=== PATIENT | female | born 1995 | race Caucasian/White ===

== ENCOUNTER 2018-06-28 05:35 | Inpatient (IN) | payer OTHER ==
[2018-06-28] MEDS ORDERED: NACL 0.9% 3 ML SYG IV (06:30)
[2018-06-28] MEDS ORDERED: ACETAMINOPHEN 325 MG TAB PO (06:30)
[2018-06-28] MEDS ORDERED: DOCUSATE SODIUM 100 MG CAP PO (06:30)
[2018-06-28] MEDS ORDERED: BISACODYL (EC) 5 MG TAB PO (06:30)
[2018-06-28] MEDS: SOD CHLORIDE 0.9% 1,000 ML IV ×2 (06:58→15:03)
[2018-06-28 07:27] LABS: ADD MAN DIFF? NO
[2018-06-28 07:29] LABS: ADD UMIC YES; UR ASCORBIC ACID NEGATIVE (NEGATIVE); UR BACTERIA FEW /HPF (NONE SEEN); UR BILIRUBIN (Dip) NEGATIVE (NEGATIVE); UR BLOOD (Dip) NEGATIVE (NEGATIVE); UR CLARITY CLEAR (CLEAR); UR COLOR STRAW (YELLOW); UR GLUCOSE (Dip) NEGATIVE (NEGATIVE); UR KETONES (Dip) NEGATIVE (NEGATIVE); UR LEUKOCYTE ESTERASE (Dip) TRACE Leu/ul (NEGATIVE); UR MUCUS FEW /HPF (NONE SEEN); UR NITRITE (Dip) POSITIVE (NEGATIVE); UR RBC 2 /HPF (0-5); UR SPECIFIC GRAVITY (Dip) 1.011 (1.003-1.030); UR TOTAL PROTEIN (Dip) NEGATIVE (NEGATIVE); UR UROBILINOGEN (Dip) NEGATIVE (NEGATIVE); UR WBC 20 /HPF (0-5)
[2018-06-28 07:31] LABS: WHITE BLOOD COUNT 7.2 10^3/ul (4.8-10.8)
[2018-06-28 07:31] LABS: BASOPHILS % 0.3 % (0.0-2.0); EOSINOPHILS % 0.6 % (0.0-7.0); HEMATOCRIT 37.3 % (37.0-47.0); HEMOGLOBIN 12.1 g/dl (12.0-16.0); LYMPHOCYTES # 1.1 10^3/ul (0.8-2.9); LYMPHOCYTES % 15.5 % (15.0-51.0); MEAN CORPUSCULAR HEMOGLOBIN 26.6 pg (29.0-33.0); MEAN CORPUSCULAR HGB CONC 32.4 g/dl (32.0-37.0); MEAN PLATELET VOLUME 10.9 fl (7.4-10.4); MONOCYTE # 0.6 10^3/ul (0.3-0.9); MONOCYTES % 7.8 % (0.0-11.0); NEUTROPHIL # 5.4 10^3/ul (1.6-7.5); NEUTROPHILS % 75.5 % (39.0-77.0); PLATELET COUNT 278 10^3/UL (140-415); RED BLOOD COUNT 4.55 10^6/ul (4.20-5.40); RED CELL DISTRIBUTION WIDTH 15.3 % (11.5-14.5)
[2018-06-28 07:57] LABS: ALANINE AMINOTRANSFERASE 26 IU/L (13-69); ALBUMIN 3.8 g/dl (3.3-4.9); ALBUMIN/GLOBULIN RATIO 1.26; ALKALINE PHOSPHATASE 83 IU/L (42-121); ANION GAP 9 (5-13); ASPARTATE AMINO TRANSFERASE 23 IU/L (15-46); BLOOD UREA NITROGEN 9 mg/dl (7-20); CALCIUM 8.4 mg/dl (8.4-10.2); CARBON DIOXIDE 21 mmol/L (21-31); CHLORIDE 112 mmol/L (97-110); CREATININE 0.69 mg/dl (0.44-1.00); Estimated GFR > 60 mL/min (>60); GLUCOSE 94 mg/dl (70-220); POTASSIUM 3.7 mmol/L (3.5-5.1); SODIUM 142 mmol/L (135-144); TOTAL PROTEIN 6.8 g/dl (6.1-8.1)
[2018-06-28 08:03] LABS: LACTIC ACID 1.6 mmol/L (0.5-2.0)
[2018-06-28] MEDS: ENOXAPARIN 40 MG/0.4 ML SYG SC (08:40)
[2018-06-28 10:11] LABS: HEMOGLOBIN A1C 5.2 % (0-5.9)
[2018-06-28 11:01] LABS: LACTIC ACID 1.7 mmol/L (0.5-2.0)
[2018-06-28] MEDS: CEFTRIAXONE 1 GM/50 ML (PMX) 50 ML IVPB (12:54)
[2018-06-28 15:21] LABS: LACTIC ACID 1.4 mmol/L (0.5-2.0)
[2018-06-29] MEDS: ONDANSETRON 4 MG INJ IV (01:10)
[2018-06-29] MEDS: HYDROCODONE/APAP (5/325) TAB PO (01:11)
[2018-06-29 05:59] LABS: ADD MAN DIFF? NO
[2018-06-29 06:27] LABS: WHITE BLOOD COUNT 4.9 10^3/ul (4.8-10.8)
[2018-06-29 06:27] LABS: BASOPHILS % 0.2 % (0.0-2.0); EOSINOPHILS # 0.1 10^3/ul (0.0-0.5); EOSINOPHILS % 2.2 % (0.0-7.0); HEMATOCRIT 39.3 % (37.0-47.0); HEMOGLOBIN 12.7 g/dl (12.0-16.0); LYMPHOCYTES # 1.7 10^3/ul (0.8-2.9); LYMPHOCYTES % 33.6 % (15.0-51.0); MEAN CORPUSCULAR HEMOGLOBIN 26.7 pg (29.0-33.0); MEAN CORPUSCULAR HGB CONC 32.3 g/dl (32.0-37.0); MEAN CORPUSCULAR VOLUME 82.7 fl (82.0-101.0); MEAN PLATELET VOLUME 10.9 fl (7.4-10.4); MONOCYTE # 0.6 10^3/ul (0.3-0.9); NEUTROPHIL # 2.5 10^3/ul (1.6-7.5); NEUTROPHILS % 50.8 % (39.0-77.0); PLATELET COUNT 297 10^3/UL (140-415); RED BLOOD COUNT 4.75 10^6/ul (4.20-5.40); RED CELL DISTRIBUTION WIDTH 15.2 % (11.5-14.5)
[2018-06-29 06:43] LABS: ALANINE AMINOTRANSFERASE 12 IU/L (13-69); ALBUMIN/GLOBULIN RATIO 1.14; ALKALINE PHOSPHATASE 85 IU/L (42-121); ANION GAP 8 (5-13); ASPARTATE AMINO TRANSFERASE 24 IU/L (15-46); BILIRUBIN,INDIRECT 0.2 mg/dl (0-1.1); BILIRUBIN,TOTAL 0.2 mg/dl (0.2-1.3); BLOOD UREA NITROGEN 11 mg/dl (7-20); CALCIUM 8.8 mg/dl (8.4-10.2); CARBON DIOXIDE 26 mmol/L (21-31); CHLORIDE 108 mmol/L (97-110); CREATININE 1.04 mg/dl (0.44-1.00); Estimated GFR > 60 mL/min (>60); GLUCOSE 104 mg/dl (70-220); POTASSIUM 3.9 mmol/L (3.5-5.1); SODIUM 142 mmol/L (135-144); TOTAL PROTEIN 7.5 g/dl (6.1-8.1)
[2018-06-29] MEDS: ENOXAPARIN 40 MG/0.4 ML SYG SC (09:03)
[2018-06-29] MEDS: MEROPENEM 1 GM/50ML(PMX) 50 ML IVPB (22:10)
[2018-06-30 06:28] LABS: ADD MAN DIFF? NO
[2018-06-30 06:33] LABS: BASOPHILS % 0.2 % (0.0-2.0); EOSINOPHILS # 0.1 10^3/ul (0.0-0.5); EOSINOPHILS % 1.6 % (0.0-7.0); HEMATOCRIT 43.4 % (37.0-47.0); LYMPHOCYTES # 1.6 10^3/ul (0.8-2.9); LYMPHOCYTES % 36.3 % (15.0-51.0); MEAN CORPUSCULAR HEMOGLOBIN 26.4 pg (29.0-33.0); MEAN CORPUSCULAR HGB CONC 32.3 g/dl (32.0-37.0); MEAN CORPUSCULAR VOLUME 81.7 fl (82.0-101.0); MEAN PLATELET VOLUME 10.8 fl (7.4-10.4); MONOCYTE # 0.5 10^3/ul (0.3-0.9); NEUTROPHIL # 2.2 10^3/ul (1.6-7.5); NEUTROPHILS % 49.9 % (39.0-77.0); PLATELET COUNT 318 10^3/UL (140-415); RED BLOOD COUNT 5.31 10^6/ul (4.20-5.40); RED CELL DISTRIBUTION WIDTH 15.2 % (11.5-14.5)
[2018-06-30 06:33] LABS: WHITE BLOOD COUNT 4.3 10^3/ul (4.8-10.8)
[2018-06-30 06:52] LABS: ANION GAP 10 (5-13); BLOOD UREA NITROGEN 14 mg/dl (7-20); CARBON DIOXIDE 25 mmol/L (21-31); CHLORIDE 107 mmol/L (97-110); CREATININE 0.85 mg/dl (0.44-1.00); Estimated GFR > 60 mL/min (>60); GLUCOSE 96 mg/dl (70-220); POTASSIUM 4.1 mmol/L (3.5-5.1); SODIUM 142 mmol/L (135-144)
[2018-06-30] MEDS: MEROPENEM 1 GM/50ML(PMX) 50 ML IVPB ×2 (07:04→14:07)
[2018-06-30 07:14] LABS: PHOSPHORUS 5.3 mg/dl (2.5-4.9)
[2018-06-30] MEDS: ENOXAPARIN 40 MG/0.4 ML SYG SC (08:56)
[2018-06-30] MEDS: VITAMIN A & D 5 GM OINT PACKET TOP (12:44)
[2018-06-30] MEDS: ERTAPENEM SODIUM 1 GM in SOD CHLORIDE 0.9% 100 ML IVPB (23:34)
[2018-07-01] MEDS: ENOXAPARIN 40 MG/0.4 ML SYG SC (09:55)
== END 2018-07-01 16:25 | disposition home health service (06) | DRG 690 ==
LOC: TEL 05:35 → 2NE 06-29 17:54
DX: N12 Tubulo-interstitial nephritis, not specified as acute or chronic (principal); E66.9 Obesity, unspecified; Z68.34 Body mass index [BMI] 34.0-34.9, adult; Q64.9 Congenital malformation of urinary system, unspecified; Z93.6 Other artificial openings of urinary tract status; B96.20 Unspecified Escherichia coli [E. coli] as the cause of diseases classified elsewhere; Z16.12 Extended spectrum beta lactamase (ESBL) resistance
CPT/HCPCS: 80048; 80053; 81001; 83036; 83605; 83735; 84100; 84443; 85025; 87086; 90686; 99217; G0378

== ENCOUNTER 2018-07-27 09:23 | Inpatient (IN) | payer OTHER ==
[2018-07-27] MEDS ORDERED: NACL 0.9% 3 ML SYG IV (10:00)
[2018-07-27] MEDS ORDERED: CEFTRIAXONE 1 GM/50 ML (PMX) 50 ML IVPB (10:00)
[2018-07-27] MEDS ORDERED: ACETAMINOPHEN 325 MG TAB PO (10:00)
[2018-07-27] MEDS: SOD CHLORIDE 0.9% 1,000 ML IV ×3 (10:53→21:13)
[2018-07-27] MEDS: HYDROCODONE/APAP (5/325) TAB PO (10:54)
[2018-07-27] MEDS: ONDANSETRON 4 MG INJ IV (10:54)
[2018-07-27 12:17] LABS: ADD UMIC NO; UR ASCORBIC ACID NEGATIVE (NEGATIVE); UR BACTERIA FEW /HPF (NONE SEEN); UR BILIRUBIN (Dip) NEGATIVE (NEGATIVE); UR BLOOD (Dip) NEGATIVE (NEGATIVE); UR CLARITY SLIGHTLY CLOUDY (CLEAR); UR COLOR STRAW (YELLOW); UR GLUCOSE (Dip) NEGATIVE (NEGATIVE); UR KETONES (Dip) NEGATIVE (NEGATIVE); UR LEUKOCYTE ESTERASE (Dip) NEGATIVE Leu/ul (NEGATIVE); UR MUCUS FEW /HPF (NONE SEEN); UR NITRITE (Dip) NEGATIVE (NEGATIVE); UR NONSQUAMOUS EPITHELIAL CELL 2 /HPF (NONE SEEN); UR RBC 22 /HPF (0-5); UR SPECIFIC GRAVITY (Dip) 1.009 (1.003-1.030); UR TOTAL PROTEIN (Dip) NEGATIVE (NEGATIVE); UR UROBILINOGEN (Dip) NEGATIVE (NEGATIVE); UR WBC 35 /HPF (0-5)
[2018-07-27] MEDS: MEROPENEM 1 GM/50ML(PMX) 50 ML IVPB ×2 (12:21→21:13)
[2018-07-28] MEDS: SOD CHLORIDE 0.9% 1,000 ML IV ×2 (05:50→14:03)
[2018-07-28 06:26] LABS: ADD MAN DIFF? NO
[2018-07-28 06:31] LABS: BASOPHILS % 0.6 % (0.0-2.0); EOSINOPHILS # 0.2 10^3/ul (0.0-0.5); EOSINOPHILS % 2.9 % (0.0-7.0); HEMATOCRIT 38.4 % (37.0-47.0); HEMOGLOBIN 12.1 g/dl (12.0-16.0); LYMPHOCYTES # 2.2 10^3/ul (0.8-2.9); LYMPHOCYTES % 34.7 % (15.0-51.0); MEAN CORPUSCULAR HEMOGLOBIN 26.5 pg (29.0-33.0); MEAN CORPUSCULAR HGB CONC 31.5 g/dl (32.0-37.0); MEAN PLATELET VOLUME 10.7 fl (7.4-10.4); MONOCYTE # 0.5 10^3/ul (0.3-0.9); MONOCYTES % 7.4 % (0.0-11.0); NEUTROPHIL # 3.4 10^3/ul (1.6-7.5); NEUTROPHILS % 54.1 % (39.0-77.0); PLATELET COUNT 319 10^3/UL (140-415); RED BLOOD COUNT 4.57 10^6/ul (4.20-5.40); RED CELL DISTRIBUTION WIDTH 15.1 % (11.5-14.5)
[2018-07-28 06:31] LABS: WHITE BLOOD COUNT 6.3 10^3/ul (4.8-10.8)
[2018-07-28 06:50] LABS: ALANINE AMINOTRANSFERASE 21 IU/L (13-69); ALBUMIN 3.7 g/dl (3.3-4.9); ALBUMIN/GLOBULIN RATIO 1.12; ALKALINE PHOSPHATASE 97 IU/L (42-121); ANION GAP 8 (5-13); ASPARTATE AMINO TRANSFERASE 22 IU/L (15-46); BILIRUBIN,INDIRECT 0.3 mg/dl (0-1.1); BILIRUBIN,TOTAL 0.3 mg/dl (0.2-1.3); BLOOD UREA NITROGEN 12 mg/dl (7-20); CALCIUM 9.1 mg/dl (8.4-10.2); CARBON DIOXIDE 28 mmol/L (21-31); CHLORIDE 108 mmol/L (97-110); CREATININE 0.92 mg/dl (0.44-1.00); Estimated GFR > 60 mL/min (>60); GLUCOSE 99 mg/dl (70-220); MAGNESIUM 1.9 mg/dl (1.7-2.5); PHOSPHORUS 5.2 mg/dl (2.5-4.9); POTASSIUM 4.3 mmol/L (3.5-5.1); SODIUM 144 mmol/L (135-144)
[2018-07-28] MEDS: MEROPENEM 1 GM/50ML(PMX) 50 ML IVPB ×2 (08:10→21:12)
[2018-07-28] MEDS: ENOXAPARIN 40 MG/0.4 ML SYG SC (08:10)
[2018-07-28] MEDS: HYDROCODONE/APAP (5/325) TAB PO ×2 (14:03→22:31)
[2018-07-29] MEDS: ONDANSETRON 4 MG INJ IV ×2 (01:04→19:37)
[2018-07-29] MEDS: SOD CHLORIDE 0.9% 1,000 ML IV ×3 (01:05→21:46)
[2018-07-29 07:17] LABS: ADD MAN DIFF? NO
[2018-07-29 07:19] LABS: WHITE BLOOD COUNT 6.8 10^3/ul (4.8-10.8)
[2018-07-29 07:19] LABS: BASOPHILS % 0.6 % (0.0-2.0); EOSINOPHILS # 0.2 10^3/ul (0.0-0.5); EOSINOPHILS % 3.2 % (0.0-7.0); HEMATOCRIT 40.4 % (37.0-47.0); HEMOGLOBIN 12.9 g/dl (12.0-16.0); LYMPHOCYTES # 2.4 10^3/ul (0.8-2.9); LYMPHOCYTES % 35.4 % (15.0-51.0); MEAN CORPUSCULAR HEMOGLOBIN 26.7 pg (29.0-33.0); MEAN CORPUSCULAR HGB CONC 31.9 g/dl (32.0-37.0); MEAN CORPUSCULAR VOLUME 83.6 fl (82.0-101.0); MEAN PLATELET VOLUME 10.6 fl (7.4-10.4); MONOCYTE # 0.5 10^3/ul (0.3-0.9); MONOCYTES % 6.8 % (0.0-11.0); NEUTROPHIL # 3.7 10^3/ul (1.6-7.5); NEUTROPHILS % 53.7 % (39.0-77.0); PLATELET COUNT 327 10^3/UL (140-415); RED BLOOD COUNT 4.83 10^6/ul (4.20-5.40); RED CELL DISTRIBUTION WIDTH 14.7 % (11.5-14.5)
[2018-07-29 07:55] LABS: MAGNESIUM 1.9 mg/dl (1.7-2.5)
[2018-07-29 08:05] LABS: ANION GAP 10 (5-13); BLOOD UREA NITROGEN 14 mg/dl (7-20); CALCIUM 9.4 mg/dl (8.4-10.2); CARBON DIOXIDE 25 mmol/L (21-31); CHLORIDE 108 mmol/L (97-110); CREATININE 0.85 mg/dl (0.44-1.00); Estimated GFR > 60 mL/min (>60); GLUCOSE 101 mg/dl (70-220); POTASSIUM 4.6 mmol/L (3.5-5.1); SODIUM 143 mmol/L (135-144)
[2018-07-29] MEDS: MEROPENEM 1 GM/50ML(PMX) 50 ML IVPB ×2 (08:38→21:46)
[2018-07-29] MEDS: ENOXAPARIN 40 MG/0.4 ML SYG SC (08:38)
[2018-07-29] MEDS: HYDROCODONE/APAP (5/325) TAB PO (12:07)
[2018-07-29] MEDS: HYDROCODONE/APAP (10/325) TAB PO (15:16)
[2018-07-29] MEDS: OXYCODONE/ACETAMINOPHEN (10/325) TAB PO (17:08)
[2018-07-29] MEDS: KETOROLAC 30 MG INJ IV (19:36)
[2018-07-29] MEDS: FAMOTIDINE 20 MG TAB PO (21:46)
[2018-07-30] MEDS: LEVOFLOXACIN 500MG/D5W (PMX) 100 ML IVPB (01:22)
[2018-07-30 07:36] LABS: ADD MAN DIFF? NO
[2018-07-30 07:38] LABS: BASOPHILS % 0.5 % (0.0-2.0); EOSINOPHILS # 0.1 10^3/ul (0.0-0.5); EOSINOPHILS % 1.3 % (0.0-7.0); HEMATOCRIT 37.6 % (37.0-47.0); LYMPHOCYTES # 2.5 10^3/ul (0.8-2.9); LYMPHOCYTES % 30.1 % (15.0-51.0); MEAN CORPUSCULAR HEMOGLOBIN 26.4 pg (29.0-33.0); MEAN CORPUSCULAR HGB CONC 31.9 g/dl (32.0-37.0); MEAN CORPUSCULAR VOLUME 82.6 fl (82.0-101.0); MEAN PLATELET VOLUME 10.9 fl (7.4-10.4); MONOCYTE # 0.7 10^3/ul (0.3-0.9); NEUTROPHILS % 59.7 % (39.0-77.0); PLATELET COUNT 328 10^3/UL (140-415); RED BLOOD COUNT 4.55 10^6/ul (4.20-5.40)
[2018-07-30 07:38] LABS: WHITE BLOOD COUNT 8.3 10^3/ul (4.8-10.8)
[2018-07-30] MEDS: SOD CHLORIDE 0.9% 1,000 ML IV ×2 (07:50→11:43)
[2018-07-30 08:01] LABS: MAGNESIUM 1.9 mg/dl (1.7-2.5)
[2018-07-30 08:01] LABS: PHOSPHORUS 5.6 mg/dl (2.5-4.9)
[2018-07-30 08:04] LABS: ANION GAP 9 (5-13); BLOOD UREA NITROGEN 13 mg/dl (7-20); CALCIUM 9.2 mg/dl (8.4-10.2); CARBON DIOXIDE 27 mmol/L (21-31); CHLORIDE 104 mmol/L (97-110); CREATININE 0.73 mg/dl (0.44-1.00); Estimated GFR > 60 mL/min (>60); GLUCOSE 84 mg/dl (70-220); SODIUM 140 mmol/L (135-144)
[2018-07-30] MEDS: ENOXAPARIN 40 MG/0.4 ML SYG SC (08:32)
[2018-07-30] MEDS: FAMOTIDINE 20 MG TAB PO ×2 (08:32→20:32)
[2018-07-30] MEDS: HYDROCODONE/APAP (10/325) TAB PO (20:32)
[2018-07-31] MEDS: LEVOFLOXACIN 500MG/D5W (PMX) 100 ML IVPB (01:22)
[2018-07-31] MEDS: FAMOTIDINE 20 MG TAB PO (09:10)
[2018-07-31] MEDS: ENOXAPARIN 40 MG/0.4 ML SYG SC (09:11)
[2018-08-01] MEDS ORDERED: LEVOFLOXACIN 500 MG TAB PO (06:00)
== END 2018-07-31 17:30 | disposition home or self-care (01) | DRG 690 ==
LOC: 5EC 09:23
DX: N12 Tubulo-interstitial nephritis, not specified as acute or chronic (principal); E66.9 Obesity, unspecified; Z68.31 Body mass index [BMI] 31.0-31.9, adult; Z87.440 Personal history of urinary (tract) infections; B96.20 Unspecified Escherichia coli [E. coli] as the cause of diseases classified elsewhere; Z98.890 Other specified postprocedural states; Z93.6 Other artificial openings of urinary tract status; Z87.718 Personal history of other specified (corrected) congenital malformations of genitourinary system
CPT/HCPCS: 76775; 80048; 80053; 81001; 81003; 83735; 84100; 85025; 87040; 87086